=== PATIENT | female | born 1945 | race Caucasian/White ===

== ENCOUNTER 2016-12-14 22:07 | Inpatient (IN) | payer MEDICARE, BC, OTHER ==
[~2016-12-14] VITALS: Ht 162.6 cm; Wt 66.0 kg
[~2016-12-14 22:07] MED LIST: ALDACTONE50 MG PO; ARICEPT10 MG PO; CALCIUM 600MG+D1 TAB PO; CLARITIN 1010 MG/TAB PO; CRESTOR20 MG PO; CYANOCOBAL1000 MCG/1 IJ; GLUCOPHAGE1000 MG PO; LANTUS100 U/ML SC; LASIX 80MG TABL80 MG PO; LUMIGAN 2.5 ML2.5 M1 OU; NAMENDA 10MG TA10 MG PO; NEURONTIN600 MG/TAB PO; NORCO 325 MG-7.1 TAB PO; PRILOSEC10 MG PO; REGLAN 10MG10 MG/TAB PO; RELAFEN 50500 MG/TAB PO; SYNTHROID0.125 MG/T PO; TOFRANIL 25MG T25 MG PO; TOVIAZ8 MG PO; VICTOZA6 MG/ML SQ; VITAMIN D32000 IU PO; ZAROXOLYN5 MG PO
[2016-12-14 23:41] LABS: BASO % 0.4 % (0.0-2.0); EOS # 0.4 (0.0-0.7); EOS % 4.2 % (0-4.0); GRAN # 6.4 (1.4-6.5); LYMPH # 1.5 (1.2-3.4); LYMPH % 16.1 % (20.0-51.0); MEAN CELL VOLUME 93 fl (80.0-100.0); MEAN CORPUSCULAR HEMOGLOBIN 31 pg (27.0-31.0); MEAN CORPUSCULAR HGB CONC 33 g/dl (33.0-37.0); MEAN PLATELET VOLUME 10.8 fl (7.4-10.4); MONO # 0.7 (0.1-0.6); PLATELET COUNT 163 K/mm3 (130-400); RED BLOOD COUNT 3.88 M/mm3 (4.10-5.30); REDCELL DISTRIBUTION WIDTH-CV 13.9 % (11.5-14.5)
[2016-12-14 23:57] LABS: HEMATOCRIT 36.1 % (37.0-47.0)
[2016-12-15 00:02] LABS: ADJUSTED CALCIUM 9.9 mg/dL (8.4-10.2); ALANINE AMINOTRANSFERASE 63 U/L (9-52); ALBUMIN 3.6 gm/dL (3.5-5.0); ALKALINE PHOSPHATASE 130 U/L (50-136); ANION GAP 10 mmol/L (7-16); BILIRUBIN,TOTAL 0.8 mg/dL (0.0-1.0); BLOOD UREA NITROGEN 22 mg/dL (7-17); CALCIUM 9.6 mg/dL (8.4-10.2); CARBON DIOXIDE 23 mmol/L (22-30); CHLORIDE 105 mmol/L (98-107); CREATININE, serum 1.34 mg/dL (0.52-1.25); GLUCOSE 108 mg/dL (74-106); POTASSIUM 4.4 mmol/L (3.4-5.0); SODIUM 138 mmol/L (137-145); TOTAL PROTEIN 6.5 gm/dL (6.4-8.2)
[2016-12-15 00:03] LABS: C-REACTIVE PROTEIN < 0.5 mg/dL (0.0-0.9)
[2016-12-15] MEDS ORDERED: LEVAQUIN 5500 MG/TA1 PO (01:30)
[2016-12-15] MEDS ORDERED: PERCOCET 325 MG1 TA2 PO (01:31)
[2016-12-15] MEDS ORDERED: ATARAX 25MG25 MG/TAB PO (01:31)
[2016-12-15] MEDS ORDERED: MYRBETR50MG PO (01:31)
[2016-12-15] MEDS ORDERED: NAMZARIC1 ECC PO (01:32)
[2016-12-15 02:33] VITALS: BP 147/62; PULSE 78; TEMP 98
[2016-12-15 03:08] LABS: PH 7 (5-8); SQUAMOUS EPITHELIAL None Seen /hpf; URINE APPEARANCE Clear; URINE BACTERIA None Seen /hpf; URINE BILIRUBIN Negative (NEGATIVE); URINE BLOOD Negative (NEGATIVE); URINE COLOR Straw; URINE GLUCOSE Negative (NEGATIVE); URINE KETONE Negative (NEGATIVE); URINE RBC None Seen /hpf; URINE UROBILINOGEN Negative (NEGATIVE); URINE WBC 0-2 /hpf
[2016-12-15 08:25] VITALS: BP 120/46; PULSE 74; TEMP 98.7
[2016-12-15 09:15] LABS: CREATININE, serum 1.21 mg/dL (0.52-1.25); POTASSIUM 4.2 mmol/L (3.4-5.0)
[2016-12-15 12:06] VITALS: BP 133/47; PULSE 86; TEMP 98
[2016-12-15 16:21] VITALS: BP 149/60; PULSE 93; TEMP 98.3
[2016-12-15 20:32] VITALS: BP 143/56; PULSE 93; TEMP 98.4
[2016-12-16] VITALS (12 sets, daily range): BP systolic 120–147; BP diastolic 45–73; PULSE 80–102; TEMP 98–99
[2016-12-17] VITALS (10 sets, daily range): BP systolic 145–157; BP diastolic 49–65; PULSE 82–102; TEMP 97.8–99.4
[2016-12-18] VITALS (7 sets, daily range): BP systolic 119–154; BP diastolic 52–84; PULSE 84–98; TEMP 98–99.1
[2016-12-19] VITALS (8 sets, daily range): BP systolic 124–146; BP diastolic 51–85; PULSE 81–103; TEMP 98.2–99.3
[2016-12-20 03:49] VITALS: BP 135/55; PULSE 99; TEMP 98.6
[2016-12-20 07:40] VITALS: BP 131/49; PULSE 85; TEMP 98.9
[2016-12-20 12:05] VITALS: BP 157/63; PULSE 91
[2016-12-20 12:40] VITALS: BP 157/73; PULSE 91
[2016-12-20 15:29] VITALS: BP 146/51; PULSE 94; TEMP 98.3
[2016-12-20 19:37] VITALS: BP 139/55; PULSE 78; TEMP 98.1
[2016-12-21 00:08] VITALS: BP 128/48; PULSE 93; TEMP 97.8
[2016-12-21 05:08] VITALS: BP 129/50; PULSE 78; TEMP 98.3
[2016-12-21 08:11] VITALS: BP 132/45; PULSE 91; TEMP 98.3
[2016-12-21 11:25] VITALS: BP 136/54; PULSE 86; TEMP 98.2
[2016-12-21 16:55] VITALS: BP 132/48; PULSE 69; TEMP 98
[2016-12-21 20:15] VITALS: BP 122/45; PULSE 84; TEMP 97.8
[2016-12-22 00:32] VITALS: BP 141/59; PULSE 104; TEMP 99.9
[2016-12-22 04:12] VITALS: BP 135/57; PULSE 89; TEMP 99.1
[2016-12-22 08:11] VITALS: BP 130/53; PULSE 84; TEMP 98.8
[2016-12-22] MEDS ORDERED: ARICEPT10 MG PO (08:30)
[2016-12-22] MEDS ORDERED: FENTANYL 100MCG TD (08:32)
[2016-12-22] MEDS ORDERED: LYRICA 75MG CAP75 MG PO (08:33)
[2016-12-22] MEDS ORDERED: MIRALAX PA17 GM/Dose PO (08:34)
[2016-12-22] MEDS ORDERED: DULCOLAX S10 MG/SUPP RC (08:34)
[2016-12-22] MEDS ORDERED: SENOKOT S 50 MG1 TAB PO (08:37)
[2016-12-22] MEDS ORDERED: LIDODERM 5% PATC1 EA TP (08:38)
[2016-12-22] MEDS ORDERED: LEVAQUIN 5500 MG/TA1 PO (09:46)
[2016-12-22] MEDS ORDERED: DILAUDID 2MG TAB2 MG PO (11:38)
[2016-12-22 12:10] VITALS: BP 136/49; PULSE 85; TEMP 97.4
[2016-12-22 14:19] VITALS: BP 136/49; PULSE 85; TEMP 97.4
[2016-12-22 15:49] VITALS: BP 145/55; PULSE 85; TEMP 98.6
[2016-12-23] MEDS ORDERED: DULCOLAX STOOL100 MG PO (20:44)
[2016-12-23] MEDS ORDERED: LEVSIN 0.10.125 MG/T PO (20:48)
[2016-12-23] MEDS ORDERED: SYNTHROID0.05 MG/TA PO (20:50)
[2016-12-23] MEDS ORDERED: ROXICODONE 55 MG/TAB PO (20:56)
[2016-12-23] MEDS ORDERED: NORCO 325 MG-7.1 TAB PO (20:57)
== END 2016-12-22 17:24 | DRG 28 ==
LOC: COL.ER 22:07 → MEDICAL 12-15 00:05
PROVIDERS: Anesthesiology Pain Medicine; Emergency Medicine; Nurse Practitioner Family
PROC: 00PU3MZ Removal of Neurostimulator Lead from Spinal Canal, Percutaneous Approach (ICD-10-PCS; 2016-12-21)
PROC: 0JPT0MZ Removal of Stimulator Generator from Trunk Subcutaneous Tissue and Fascia, Open Approach (ICD-10-PCS; principal; 2016-12-21 14:30)
DX: T85.840A Pain due to nervous system prosthetic devices, implants and grafts, initial encounter (principal); E43 Unspecified severe protein-calorie malnutrition; N17.9 Acute kidney failure, unspecified; Z66 Do not resuscitate; M51.16 Intervertebral disc disorders with radiculopathy, lumbar region; E11.9 Type 2 diabetes mellitus without complications; Z85.3 Personal history of malignant neoplasm of breast; G89.29 Other chronic pain; Z87.891 Personal history of nicotine dependence; R33.9 Retention of urine, unspecified; G30.0 Alzheimer's disease with early onset; F02.80 Dementia in other diseases classified elsewhere, unspecified severity, without behavioral disturbance, psychotic disturbance, mood disturbance, and anxiety
CPT/HCPCS: 99231-AI; 99232-AI; 99233-AI; 99239; G0378; G8978-GP; G8979-GP; G8987-GO; G8988-GO; J0690; J1100; J1170; J1885; J2250; J2405; J2704; J3010; J7030; Q9967

== ENCOUNTER 2016-12-22 11:44 | Inpatient (IN) | payer MEDICARE, BC, OTHER ==
[~2016-12-22] VITALS: Ht 162.6 cm; Wt 65.2 kg
[~2016-12-22 11:44] MED LIST changes: +ATARAX 25MG25 MG/TAB PO; +DILAUDID 2MG TAB2 MG PO; +DULCOLAX S10 MG/SUPP RC; +FENTANYL 100MCG TD; +LEVAQUIN 5500 MG/TA1 PO; +LIDODERM 5% PATC1 EA TP; +LYRICA 75MG CAP75 MG PO; +MIRALAX PA17 GM/Dose PO; +MYRBETR50MG PO; +NAMZARIC1 ECC PO; +PERCOCET 325 MG1 TA2 PO; +SENOKOT S 50 MG1 TAB PO
[2016-12-22 17:36] VITALS: BP 126/47; PULSE 76; TEMP 98.9
[2016-12-23 04:48] VITALS: BP 118/40; PULSE 75; TEMP 97.3
[2016-12-23 18:01] VITALS: BP 149/46; PULSE 83; TEMP 98.2
[2016-12-23] MEDS ORDERED: DULCOLAX STOOL100 MG PO (20:44)
[2016-12-23] MEDS ORDERED: LEVSIN 0.10.125 MG/T PO (20:48)
[2016-12-23] MEDS ORDERED: SYNTHROID0.05 MG/TA PO (20:50)
[2016-12-23] MEDS ORDERED: ROXICODONE 55 MG/TAB PO (20:56)
[2016-12-23] MEDS ORDERED: NORCO 325 MG-7.1 TAB PO (20:57)
[2016-12-24 04:32] VITALS: BP 112/51; PULSE 81; TEMP 98.1
[2016-12-24 18:31] VITALS: BP 138/47; PULSE 98; TEMP 99.1
[2016-12-25 04:13] VITALS: BP 131/53; PULSE 86; TEMP 98
[2016-12-25 18:02] VITALS: BP 150/58; PULSE 94; TEMP 98.8
[2016-12-26 04:43] VITALS: BP 129/49; PULSE 84; TEMP 97.9
[2016-12-26 16:33] VITALS: BP 153/61; PULSE 88; TEMP 98.4
[2016-12-27 02:40] VITALS: BP 134/49; PULSE 97; TEMP 97.6
[2016-12-27 05:57] VITALS: BP 121/45; PULSE 87; TEMP 97.9
[2016-12-27 11:13] VITALS: BP 146/55; PULSE 92; TEMP 98.1
[2016-12-27 17:07] VITALS: BP 113/46; PULSE 86; TEMP 98.7
[2016-12-28 04:52] VITALS: BP 130/48; PULSE 80; TEMP 97.7
[2016-12-28 13:37] LABS: ADD PATHOLOGY DIFF REVIEW NO
[2016-12-28 13:43] LABS: MEAN CELL VOLUME 91 fl (80.0-100.0); MEAN CORPUSCULAR HGB CONC 33 g/dl (33.0-37.0); MEAN PLATELET VOLUME 10.6 fl (7.4-10.4); PLATELET COUNT 279 K/mm3 (130-400); RED BLOOD COUNT 3.66 M/mm3 (4.10-5.30); REDCELL DISTRIBUTION WIDTH-CV 13.2 % (11.5-14.5); WHITE BLOOD COUNT 8.4 K/mm3 (4.8-10.8)
[2016-12-28 13:44] LABS: HEMATOCRIT 33.3 % (37.0-47.0); HEMOGLOBIN 11.1 g/dl (12.5-16.0); MEAN CORPUSCULAR HEMOGLOBIN 30 pg (27.0-31.0)
[2016-12-28 13:55] LABS: CALCIUM 9.8 mg/dL (8.4-10.2); CREATININE, serum 1.1 mg/dL (0.52-1.25); MAGNESIUM 2.1 mg/dL (1.6-2.3); POTASSIUM 3.5 mmol/L (3.4-5.0)
[2016-12-28 15:35] LABS: BAND 6 % (0-10); EOSINOPHIL 4 % (0-4); NEUTROPHILS 71 % (42.0-75.2); PLATELET ESTIMATE NORMAL (NORMAL); TOTAL CELLS COUNTED 100
[2016-12-28 16:16] VITALS: BP 134/56; PULSE 76; TEMP 98.4
[2016-12-28 19:28] LABS: PH 8 (5-8); SQUAMOUS EPITHELIAL 0-2 /hpf; URINE APPEARANCE Clear; URINE BACTERIA None Seen /hpf; URINE BILIRUBIN Negative (NEGATIVE); URINE BLOOD Negative (NEGATIVE); URINE COLOR Straw; URINE GLUCOSE Negative (NEGATIVE); URINE KETONE Negative (NEGATIVE); URINE RBC 0-2 /hpf; URINE UROBILINOGEN Negative (NEGATIVE); URINE WBC 0-2 /hpf
[2016-12-29 06:00] VITALS: BP 121/67; PULSE 92; TEMP 98.6
[2016-12-29 16:11] VITALS: BP 128/56; PULSE 76; TEMP 99.1
[2016-12-30 05:02] VITALS: BP 149/77; PULSE 95; TEMP 97.4
[2016-12-30 13:14] LABS: ARTERIAL BLD GAS O2 SATURATION 94.7 % (92-100); ARTERIAL BLD GAS TCO2 CT 25.6; ARTERIAL BLOOD GAS BASE EXCESS 0.6 (-2-2); ARTERIAL BLOOD GAS HCO3 24.5 meq/L (22-26); ARTERIAL BLOOD GAS PHT 7.45 C (7.35-7.45); ARTERIAL BLOOD GAS PO2 75.1 mmHg (80-100); ARTERIAL BLOOD GAS PO2T 75.1 (80-100); ARTERIAL BLOOD GAS pH 7.45 (7.35-7.45); OXYHEMOGLOBIN 93.8 %
[2016-12-30 13:15] LABS: ALLEN TEST YES; ALLENS TEST RESULT PASS; ATS? YES
[2016-12-30 15:05] LABS: BASO # 0.1 (0.0-0.2); BASO % 0.8 % (0.0-2.0); EOS # 0.5 (0.0-0.7); EOS % 8.1 % (0-4.0); GRAN # 3.6 (1.4-6.5); GRAN % 60.2 % (42.2-75.2); LYMPH # 1.5 (1.2-3.4); LYMPH % 24.3 % (20.0-51.0); MEAN CELL VOLUME 93 fl (80.0-100.0); MEAN CORPUSCULAR HGB CONC 33 g/dl (33.0-37.0); MEAN PLATELET VOLUME 9.9 fl (7.4-10.4); MONO # 0.4 (0.1-0.6); MONO % 6.3 % (1.7-9.3); PLATELET COUNT 233 K/mm3 (130-400); RED BLOOD COUNT 3.29 M/mm3 (4.10-5.30); REDCELL DISTRIBUTION WIDTH-CV 13.4 % (11.5-14.5)
[2016-12-30 15:08] LABS: HEMATOCRIT 30.5 % (37.0-47.0); HEMOGLOBIN 9.9 g/dl (12.5-16.0); MEAN CORPUSCULAR HEMOGLOBIN 30 pg (27.0-31.0)
[2016-12-30 15:13] LABS: CALCIUM 9.2 mg/dL (8.4-10.2); CREATININE, serum 1.15 mg/dL (0.52-1.25); MAGNESIUM 1.9 mg/dL (1.6-2.3); POTASSIUM 3.8 mmol/L (3.4-5.0)
[2016-12-30 18:02] VITALS: BP 148/58; PULSE 81; TEMP 97.4
[2016-12-31 06:16] VITALS: BP 108/44; PULSE 76; TEMP 97.4
[2016-12-31 16:03] VITALS: BP 136/51; PULSE 80; TEMP 98.4
[2017-01-01 05:58] VITALS: BP 130/61; PULSE 77; TEMP 98.5
[2017-01-01 16:17] VITALS: BP 143/48; PULSE 70; TEMP 98
[2017-01-02 04:23] VITALS: BP 130/56; PULSE 76; TEMP 97.9
[2017-01-02 16:13] VITALS: BP 133/48; PULSE 73; TEMP 98.2
[2017-01-03 06:24] VITALS: BP 122/52; PULSE 88; TEMP 97.6
[2017-01-03 17:55] VITALS: BP 140/46; PULSE 82; TEMP 97
[2017-01-04 04:16] VITALS: BP 111/45; PULSE 81; TEMP 98.2
[2017-01-04 19:20] VITALS: BP 135/52; PULSE 79; TEMP 98.3
[2017-01-05 05:20] VITALS: BP 113/47; PULSE 82; TEMP 99
[2017-01-05] MEDS ORDERED: TYLENOL 325MG325 MG PO (12:01)
[2017-01-05] MEDS ORDERED: LIDODERM 5% PATC1 EA TP (12:05)
[2017-01-05] MEDS ORDERED: FENTANYL 100MCG TD (12:09)
== END 2017-01-05 14:45 | disposition home or self-care (01) | DRG 947 ==
PROVIDERS: Internal Medicine
DX: R53.81 Other malaise (principal); E43 Unspecified severe protein-calorie malnutrition; Z66 Do not resuscitate; E11.21 Type 2 diabetes mellitus with diabetic nephropathy; M51.16 Intervertebral disc disorders with radiculopathy, lumbar region; G89.29 Other chronic pain; N18.9 Chronic kidney disease, unspecified; R33.9 Retention of urine, unspecified
CPT/HCPCS: 99222-AI; 99232-AI; 99233-AI; 99239; J1650

== ENCOUNTER → 2017-02-17 | Outpatient (CLI) | payer MEDICARE, BC, OTHER ==
[~2017-02-17] MED LIST changes: +DULCOLAX STOOL100 MG PO; +LEVSIN 0.10.125 MG/T PO; +ROXICODONE 55 MG/TAB PO; +SYNTHROID0.05 MG/TA PO; +TYLENOL 325MG325 MG PO
[2017-02-17 15:29] LABS: PH 6 (5-8); SQUAMOUS EPITHELIAL 0-2 /hpf; URINE APPEARANCE Clear; URINE BACTERIA None Seen /hpf; URINE BILIRUBIN Negative (NEGATIVE); URINE BLOOD Negative (NEGATIVE); URINE COLOR Yellow; URINE GLUCOSE Negative (NEGATIVE); URINE KETONE Negative (NEGATIVE); URINE RBC 0-2 /hpf; URINE UROBILINOGEN Negative (NEGATIVE); URINE WBC 0-2 /hpf
[2017-02-17 15:38] LABS: ADJUSTED CALCIUM 9.5 mg/dL (8.4-10.2); ALBUMIN 3.8 gm/dL (3.5-5.0); BILIRUBIN,TOTAL 0.6 mg/dL (0.0-1.0); CALCIUM 9.3 mg/dL (8.4-10.2); CREATININE, serum 1.04 mg/dL (0.52-1.25); POTASSIUM 3.9 mmol/L (3.4-5.0); TOTAL PROTEIN 6.6 gm/dL (6.4-8.2)
[2017-02-17 16:08] LABS: THYROID STIMULATING HORMONE 3.79 uIU/mL (0.465-4.680)
[2017-02-17 22:45] LABS: ALBUMIN/CREATININE RATIO URINE 22.4 mg/g (0.0-29.0)
== END ==
LOC: COL.LAB 14:23
PROVIDERS: Internal Medicine
DX: E78.2 Mixed hyperlipidemia (principal); E11.9 Type 2 diabetes mellitus without complications; E03.2 Hypothyroidism due to medicaments and other exogenous substances; K90.89 Other intestinal malabsorption; N30.10 Interstitial cystitis (chronic) without hematuria

== ENCOUNTER → 2017-03-01 | Outpatient (CLI) | payer MEDICARE, BC, OTHER | LOC: MHCPAIN 09:33 | DX: G89.29 Other chronic pain (principal); M47.817 Spondylosis without myelopathy or radiculopathy, lumbosacral region; M53.3 Sacrococcygeal disorders, not elsewhere classified; M41.9 Scoliosis, unspecified | CPT/HCPCS: G0463 ==

== ENCOUNTER → 2017-03-31 | Outpatient (CLI) | payer MEDICARE, BC, OTHER | LOC: MHCPAIN 10:36 | DX: G89.29 Other chronic pain (principal); M47.817 Spondylosis without myelopathy or radiculopathy, lumbosacral region; M54.16 Radiculopathy, lumbar region; M41.9 Scoliosis, unspecified; Z87.891 Personal history of nicotine dependence | CPT/HCPCS: G0463 ==

== ENCOUNTER → 2017-04-19 | Outpatient (CLI) | payer MEDICARE, BC, OTHER | LOC: MC.RAD 13:00 | DX: Z12.31 Encounter for screening mammogram for malignant neoplasm of breast (principal); C50.919 Malignant neoplasm of unspecified site of unspecified female breast ==

== ENCOUNTER → 2017-05-05 | Outpatient (CLI) | payer MEDICARE, BC, OTHER | LOC: MHCPAIN 10:31 | DX: G89.29 Other chronic pain (principal); M47.817 Spondylosis without myelopathy or radiculopathy, lumbosacral region; M79.2 Neuralgia and neuritis, unspecified; M41.9 Scoliosis, unspecified; Z87.891 Personal history of nicotine dependence | CPT/HCPCS: G0463 ==

== ENCOUNTER → 2017-06-14 | Outpatient (CLI) | payer MEDICARE, BC, OTHER | LOC: MHCPAIN 10:28 | DX: G89.29 Other chronic pain (principal); M47.817 Spondylosis without myelopathy or radiculopathy, lumbosacral region; M79.2 Neuralgia and neuritis, unspecified; M41.9 Scoliosis, unspecified | CPT/HCPCS: G0463 ==

== ENCOUNTER → 2017-07-14 | Outpatient (CLI) | payer MEDICARE, BC, OTHER | LOC: MHCPAIN 12:50 | DX: G89.29 Other chronic pain (principal); M47.27 Other spondylosis with radiculopathy, lumbosacral region; M79.2 Neuralgia and neuritis, unspecified; Z79.82 Long term (current) use of aspirin | CPT/HCPCS: G0463 ==

== ENCOUNTER → 2017-08-16 | Outpatient (CLI) | payer MEDICARE, BC, OTHER | LOC: MHCPAIN 10:41 | DX: G89.29 Other chronic pain (principal); M47.817 Spondylosis without myelopathy or radiculopathy, lumbosacral region; M79.2 Neuralgia and neuritis, unspecified; Z87.891 Personal history of nicotine dependence | CPT/HCPCS: G0463 ==

== ENCOUNTER → 2017-10-18 | Outpatient (CLI) | payer MEDICARE, BC, OTHER | LOC: MHCPAIN 10:49 | DX: G89.29 Other chronic pain (principal); M47.817 Spondylosis without myelopathy or radiculopathy, lumbosacral region; M53.3 Sacrococcygeal disorders, not elsewhere classified; F17.200 Nicotine dependence, unspecified, uncomplicated | CPT/HCPCS: G0463 ==

== ENCOUNTER 2017-12-01 13:44 | Inpatient (IN) | payer MEDICARE, BC, OTHER ==
[~2017-12-01] VITALS: Ht 162.6 cm; Wt 75.6 kg
[2018-02-01] VITALS (10 sets, daily range): BP systolic 123–175; BP diastolic 44–88; PULSE 55–62; TEMP 98–983.2
[2018-02-02 01:22] VITALS: BP 122/56; PULSE 64; TEMP 98.1
[2018-02-02 03:57] VITALS: BP 130/59; PULSE 76; TEMP 98.4
[2018-02-02 06:59] LABS: HEMOGLOBIN 10.3 g/dl (12.5-16.0)
[2018-02-02 07:19] LABS: HEMATOCRIT 30.9 % (37.0-47.0)
[2018-02-02 07:37] VITALS: BP 127/89; PULSE 73; TEMP 97.9
[2018-02-02 12:34] VITALS: BP 143/50; PULSE 68; TEMP 97.5
[2018-02-02 16:13] VITALS: BP 143/42; PULSE 78; TEMP 98
[2018-02-02 20:33] VITALS: BP 165/57; PULSE 98; TEMP 98.4
[2018-02-03 00:15] VITALS: BP 140/60; PULSE 90; TEMP 98
[2018-02-03 04:45] VITALS: BP 149/65; PULSE 100; TEMP 98.6
[2018-02-03 09:02] VITALS: BP 151/61; PULSE 96; TEMP 97.8
[2018-02-03 12:39] VITALS: BP 92/54; PULSE 91; TEMP 98
== END 2018-02-03 14:40 | disposition home or self-care (01) | DRG 470 ==
LOC: JCC 02-01 06:49
PROVIDERS: Orthopaedic Surgery
PROC: 0SRC0J9 Replacement of Right Knee Joint with Synthetic Substitute, Cemented, Open Approach (ICD-10-PCS; principal; 2018-02-01 09:50)
DX: M17.11 Unilateral primary osteoarthritis, right knee (principal); N32.81 Overactive bladder; M48.00 Spinal stenosis, site unspecified; J30.9 Allergic rhinitis, unspecified; E05.90 Thyrotoxicosis, unspecified without thyrotoxic crisis or storm; E11.9 Type 2 diabetes mellitus without complications; F03.90 Unspecified dementia, unspecified severity, without behavioral disturbance, psychotic disturbance, mood disturbance, and anxiety; R29.6 Repeated falls; H40.9 Unspecified glaucoma; K44.9 Diaphragmatic hernia without obstruction or gangrene; F32.9 Major depressive disorder, single episode, unspecified; I87.2 Venous insufficiency (chronic) (peripheral); E55.9 Vitamin D deficiency, unspecified; M81.0 Age-related osteoporosis without current pathological fracture
CPT/HCPCS: A4314; A9284; C1713; C1776; J0690; J2250; J2270; J2704; J3010; J3260; J7120

== ENCOUNTER → 2017-12-15 | Outpatient (CLI) | payer MEDICARE, BC, OTHER | LOC: MHCPAIN 10:47 | DX: G89.29 Other chronic pain (principal); M47.817 Spondylosis without myelopathy or radiculopathy, lumbosacral region; M53.3 Sacrococcygeal disorders, not elsewhere classified; M41.9 Scoliosis, unspecified | CPT/HCPCS: G0463 ==

== ENCOUNTER → 2017-12-17 | Outpatient (REF) ==
[2017-12-17 18:36] LABS: THYROID STIMULATING HORMONE 2.59 uIU/mL (0.465-4.680)
== END ==
LOC: ZLAB.WCH 17:54
PROVIDERS: Internal Medicine
DX: Z01.89 Encounter for other specified special examinations (principal)

== ENCOUNTER → 2018-01-11 | Outpatient (REF) | LOC: ZLAB.WCH 15:02 | DX: Z01.89 Encounter for other specified special examinations (principal) ==

== ENCOUNTER → 2018-01-17 | Outpatient (CLI) | payer MEDICARE, BC, OTHER ==
[2018-01-17 10:06] LABS: HIV 1/2 Antibodies Non-Reactive; HIV-1p24 Antigen Non-Reactive
== END ==
LOC: COL.LAB 08:58
PROVIDERS: Orthopaedic Surgery
DX: Z01.812 Encounter for preprocedural laboratory examination (principal); M17.11 Unilateral primary osteoarthritis, right knee

== ENCOUNTER → 2018-02-21 | Outpatient (CLI) | payer MEDICARE, BC, OTHER | LOC: MHCPAIN 12:47 | DX: G89.29 Other chronic pain (principal); M47.817 Spondylosis without myelopathy or radiculopathy, lumbosacral region; M53.3 Sacrococcygeal disorders, not elsewhere classified; M41.9 Scoliosis, unspecified | CPT/HCPCS: G0463 ==

== ENCOUNTER → 2018-02-21 | Outpatient (CLI) | payer MEDICARE, BC, OTHER | LOC: MHCPAIN 12:59 | DX: G89.29 Other chronic pain (principal); M47.817 Spondylosis without myelopathy or radiculopathy, lumbosacral region; M53.3 Sacrococcygeal disorders, not elsewhere classified; M41.9 Scoliosis, unspecified | CPT/HCPCS: G0463 ==

== ENCOUNTER → 2018-03-28 | Outpatient (CLI) | payer MEDICARE, BC, OTHER ==
[~2018-03-28] MED LIST changes: +COLACE 100100 MG/CAP PO; +FLONASEALLERGY NS; +LIORESAL 1010 MG/TAB PO; +MELATONIN5 M1 SL; +MULTIVITAMIN FO1 CAP PO; +VITAMIN D 400400 IU PO
== END ==
LOC: MHCPAIN 11:19
DX: G89.29 Other chronic pain (principal); M47.817 Spondylosis without myelopathy or radiculopathy, lumbosacral region; M53.3 Sacrococcygeal disorders, not elsewhere classified; M79.2 Neuralgia and neuritis, unspecified; M48.061 Spinal stenosis, lumbar region without neurogenic claudication; M41.9 Scoliosis, unspecified
CPT/HCPCS: G0463

== ENCOUNTER 2018-03-30 09:49 | Inpatient (IN) | payer MEDICARE, BC, OTHER ==
[~2018-03-30] VITALS: Ht 165.1 cm; Wt 77.9 kg
[2018-03-30] VITALS (218 sets, daily range): BP systolic 122–148; BP diastolic 64–68; PULSE 73–81; TEMP 97–98.4; O2SAT 52–100
[~2018-03-30 09:49] MED LIST changes: -COLACE 100100 MG/CAP PO; -FLONASEALLERGY NS; -LIORESAL 1010 MG/TAB PO; -MELATONIN5 M1 SL; -MULTIVITAMIN FO1 CAP PO; -VITAMIN D 400400 IU PO
[2018-03-30 10:29] LABS: COLLECTION METHOD CATHETER
[2018-03-30 10:44] LABS: PH 8 (5-8); SQUAMOUS EPITHELIAL None Seen /hpf; URINE APPEARANCE Clear; URINE BACTERIA None Seen /hpf; URINE BILIRUBIN Negative (NEGATIVE); URINE BLOOD Negative (NEGATIVE); URINE COLOR Straw; URINE GLUCOSE Negative (NEGATIVE); URINE KETONE Negative (NEGATIVE); URINE LEUKOCYTE ESTERASE Negative (NEGATIVE); URINE NITRATE Negative (NEGATIVE); URINE PROTEIN(semi-quant) Negative (NEGATIVE); URINE RBC 0-2 /hpf; URINE UROBILINOGEN Negative (NEGATIVE)
[2018-03-30] MEDS ORDERED: MYRBETR50MG PO (10:46)
[2018-03-30] MEDS ORDERED: NEURONTIN600 MG/TAB PO (10:47)
[2018-03-30] MEDS ORDERED: MULTIVITAMIN FO1 CAP PO (10:48)
[2018-03-30] MEDS ORDERED: VITAMIN D 400400 IU PO (10:49)
[2018-03-30] MEDS ORDERED: FLONASEALLERGY NS (10:50)
[2018-03-30] MEDS ORDERED: MELATONIN5 M1 SL (10:50)
[2018-03-30] MEDS ORDERED: PERCOCET 325 MG1 TA2 PO (10:50)
[2018-03-30] MEDS ORDERED: COLACE 100100 MG/CAP PO (10:51)
[2018-03-30] MEDS ORDERED: LIORESAL 1010 MG/TAB PO (10:51)
[2018-03-30 11:47] LABS: ALANINE AMINOTRANSFERASE 69 U/L (9-52); ALBUMIN 3.7 gm/dL (3.5-5.0); ALKALINE PHOSPHATASE 203 U/L (50-136); ANION GAP 9 mmol/L (7-16); AST,SGOT 56 U/L (15-37); BILIRUBIN,TOTAL 0.4 mg/dL (0.0-1.0); BLOOD UREA NITROGEN 24 mg/dL (7-17); CALCIUM 9.2 mg/dL (8.4-10.2); CARBON DIOXIDE 27 mmol/L (22-30); CHLORIDE 103 mmol/L (98-107); CREATININE, serum 1.38 mg/dL (0.52-1.25); GLUCOSE 106 mg/dL (74-106); POTASSIUM 3.7 mmol/L (3.4-5.0); SODIUM 140 mmol/L (137-145); TOTAL PROTEIN 6.8 gm/dL (6.4-8.2)
[2018-03-30 12:04] LABS: TROPONIN-I < 0.012 ng/mL (0.000-0.034)
[2018-03-30 13:16] LABS: ALCOHOL(ethanol),MEDICAL < 10 mg/dL
[2018-03-30 13:24] LABS: TRICYCLIC ANTIDEPRESS URINE NEGATIVE
[2018-03-30 14:53] LABS: BASO % 0.3 % (0.0-2.0); EOS # 0.2 (0.0-0.7); EOS % 2.7 % (0-4.0); GRAN # 4.9 (1.4-6.5); GRAN % 73.3 % (42.2-75.2); HEMOGLOBIN 11.7 g/dl (12.5-16.0); LYMPH # 1.2 (1.2-3.4); LYMPH % 17.9 % (20.0-51.0); MEAN CELL VOLUME 93 fl (80.0-100.0); MEAN CORPUSCULAR HEMOGLOBIN 31 pg (27.0-31.0); MEAN CORPUSCULAR HGB CONC 34 g/dl (33.0-37.0); MEAN PLATELET VOLUME 9.9 fl (7.4-10.4); MONO # 0.4 (0.1-0.6); MONO % 5.3 % (1.7-9.3); PLATELET COUNT 188 K/mm3 (130-400); RED BLOOD COUNT 3.74 M/mm3 (4.10-5.30); REDCELL DISTRIBUTION WIDTH-CV 14.4 % (11.5-14.5)
[2018-03-30 14:55] LABS: HEMATOCRIT 34.9 % (37.0-47.0)
[2018-03-31] VITALS (876 sets, daily range): BP systolic 115–157; BP diastolic 58–68; PULSE 77–96; TEMP 97.6–99.4; O2SAT 64–100
[2018-03-31 05:55] LABS: BASO % 0.4 % (0.0-2.0); EOS # 0.2 (0.0-0.7); EOS % 2.8 % (0-4.0); GRAN % 70.1 % (42.2-75.2); HEMOGLOBIN 10.4 g/dl (12.5-16.0); LYMPH # 1.5 (1.2-3.4); LYMPH % 17.9 % (20.0-51.0); MEAN CORPUSCULAR HEMOGLOBIN 31 pg (27.0-31.0); MEAN CORPUSCULAR HGB CONC 32 g/dl (33.0-37.0); MEAN PLATELET VOLUME 10.8 fl (7.4-10.4); MONO # 0.7 (0.1-0.6); MONO % 8.4 % (1.7-9.3); PLATELET COUNT 184 K/mm3 (130-400); RED BLOOD COUNT 3.34 M/mm3 (4.10-5.30); REDCELL DISTRIBUTION WIDTH-CV 14.6 % (11.5-14.5)
[2018-03-31 05:58] LABS: HEMATOCRIT 32.6 % (37.0-47.0); MEAN CELL VOLUME 98 fl (80.0-100.0)
[2018-03-31 06:06] LABS: CALCIUM 8.8 mg/dL (8.4-10.2); CREATININE, serum 1.37 mg/dL (0.52-1.25); POTASSIUM 3.6 mmol/L (3.4-5.0)
[2018-04-01] VITALS (528 sets, daily range): BP systolic 129–168; BP diastolic 68–88; PULSE 73–86; TEMP 97–97.8; O2SAT 70–100
[2018-04-01 14:40] LABS: BASO % 0.5 % (0.0-2.0); EOS # 0.1 (0.0-0.7); EOS % 1.6 % (0-4.0); GRAN # 5.1 (1.4-6.5); GRAN % 68.2 % (42.2-75.2); HEMATOCRIT 36.2 % (37.0-47.0); HEMOGLOBIN 12.2 g/dl (12.5-16.0); LYMPH # 1.7 (1.2-3.4); LYMPH % 22.6 % (20.0-51.0); MEAN CELL VOLUME 93 fl (80.0-100.0); MEAN CORPUSCULAR HEMOGLOBIN 31 pg (27.0-31.0); MEAN CORPUSCULAR HGB CONC 34 g/dl (33.0-37.0); MEAN PLATELET VOLUME 10.3 fl (7.4-10.4); MONO # 0.5 (0.1-0.6); MONO % 6.7 % (1.7-9.3); PLATELET COUNT 189 K/mm3 (130-400); REDCELL DISTRIBUTION WIDTH-CV 13.9 % (11.5-14.5)
[2018-04-01 14:50] LABS: ALBUMIN 3.9 gm/dL (3.5-5.0); BILIRUBIN,TOTAL 0.4 mg/dL (0.0-1.0); CALCIUM 9.8 mg/dL (8.4-10.2); CREATININE, serum 1.14 mg/dL (0.52-1.25); POTASSIUM 3.7 mmol/L (3.4-5.0); TOTAL PROTEIN 7.3 gm/dL (6.4-8.2)
== END 2018-04-01 15:50 | disposition home health service (06) | DRG 92 ==
LOC: COL.ER 09:49 → ICU 12:39
PROVIDERS: Emergency Medicine; Hospitalist; Physician Assistant
DX: G92 Toxic encephalopathy (principal); N17.9 Acute kidney failure, unspecified; T42.8X5A Adverse effect of antiparkinsonism drugs and other central muscle-tone depressants, initial encounter; E11.9 Type 2 diabetes mellitus without complications; Z85.3 Personal history of malignant neoplasm of breast; F03.90 Unspecified dementia, unspecified severity, without behavioral disturbance, psychotic disturbance, mood disturbance, and anxiety; Z87.891 Personal history of nicotine dependence; G89.29 Other chronic pain; M51.16 Intervertebral disc disorders with radiculopathy, lumbar region
CPT/HCPCS: 99223-AI; 99233-AI; 99239; G0463; G8978-GP; G8979-GP; G8987-GO; G8988-GO; J1644; J2310; J2405; J7030

== ENCOUNTER → 2018-04-05 | Outpatient (CLI) | payer MEDICARE, BC, OTHER ==
[~2018-04-05] MED LIST changes: +COLACE 100100 MG/CAP PO; +FLONASEALLERGY NS; +LIORESAL 1010 MG/TAB PO; +MELATONIN5 M1 SL; +MULTIVITAMIN FO1 CAP PO; +VITAMIN D 400400 IU PO
== END ==
LOC: MHCPAIN 13:48
DX: G89.29 Other chronic pain (principal); M47.817 Spondylosis without myelopathy or radiculopathy, lumbosacral region; M53.3 Sacrococcygeal disorders, not elsewhere classified; M47.814 Spondylosis without myelopathy or radiculopathy, thoracic region; M48.061 Spinal stenosis, lumbar region without neurogenic claudication; M41.9 Scoliosis, unspecified
CPT/HCPCS: G0463

== ENCOUNTER → 2018-04-14 | Outpatient (REF) | LOC: ZLAB.WCH 08:49 | DX: Z01.89 Encounter for other specified special examinations (principal) ==

== ENCOUNTER → 2018-04-20 | Outpatient (CLI) | payer MEDICARE, BC, OTHER | LOC: MC.RAD 13:08 | DX: Z12.31 Encounter for screening mammogram for malignant neoplasm of breast (principal); Z90.11 Acquired absence of right breast and nipple; R92.1 Mammographic calcification found on diagnostic imaging of breast; Z85.3 Personal history of malignant neoplasm of breast ==

== ENCOUNTER → 2018-04-26 | Outpatient (CLI) | payer MEDICARE, BC, OTHER | LOC: MC.RAD 13:29 | DX: R92.1 Mammographic calcification found on diagnostic imaging of breast (principal); R92.2 Inconclusive mammogram; Z85.3 Personal history of malignant neoplasm of breast ==

== ENCOUNTER → 2018-06-06 | Outpatient (CLI) | payer MEDICARE, BC, OTHER | LOC: MHCPAIN 09:05 | DX: G89.29 Other chronic pain (principal); M47.817 Spondylosis without myelopathy or radiculopathy, lumbosacral region; M53.3 Sacrococcygeal disorders, not elsewhere classified; M47.814 Spondylosis without myelopathy or radiculopathy, thoracic region; M41.9 Scoliosis, unspecified; M79.2 Neuralgia and neuritis, unspecified | CPT/HCPCS: G0463 ==

== ENCOUNTER 2018-06-15 08:59 | Emergency (ER) | payer MEDICARE, BC, OTHER ==
[~2018-06-15] VITALS: Ht 162.6 cm; Wt 72.7 kg
[2018-06-15 09:04] VITALS: TEMP 97.9
[2018-06-15] MEDS ORDERED: D3-5050000 IU PO (09:29)
[2018-06-15 09:31] LABS: BASO % 0.4 % (0.0-2.0); EOS # 0.4 (0.0-0.7); EOS % 4.5 % (0-4.0); GRAN # 6.4 (1.4-6.5); GRAN % 68.7 % (42.2-75.2); HEMATOCRIT 36.9 % (37.0-47.0); HEMOGLOBIN 12.5 g/dl (12.5-16.0); LYMPH # 1.9 (1.2-3.4); LYMPH % 20.7 % (20.0-51.0); MEAN CELL VOLUME 91 fl (80.0-100.0); MEAN CORPUSCULAR HEMOGLOBIN 31 pg (27.0-31.0); MEAN CORPUSCULAR HGB CONC 34 g/dl (33.0-37.0); MEAN PLATELET VOLUME 10.2 fl (7.4-10.4); MONO # 0.5 (0.1-0.6); MONO % 5.4 % (1.7-9.3); PLATELET COUNT 167 K/mm3 (130-400); RED BLOOD COUNT 4.05 M/mm3 (4.10-5.30); REDCELL DISTRIBUTION WIDTH-CV 13.8 % (11.5-14.5)
[2018-06-15] MEDS ORDERED: VESICARE10 MG PO (09:33)
[2018-06-15] MEDS ORDERED: ATARAX 25MG25 MG/TAB PO (09:33)
[2018-06-15 09:44] LABS: ALBUMIN 3.8 gm/dL (3.5-5.0); BILIRUBIN,TOTAL 0.4 mg/dL (0.0-1.0); C-REACTIVE PROTEIN 0.7 mg/dL (0.0-0.9); CALCIUM 9.8 mg/dL (8.4-10.2); CREATININE, serum 1.3 mg/dL (0.52-1.25)
[2018-06-15 11:08] VITALS: BP 162/74; PULSE 62
== END 2018-06-15 11:07 | disposition home or self-care (01) ==
LOC: COL.ER 08:59
PROVIDERS: Family Medicine
DX: R13.10 Dysphagia, unspecified (principal); M54.2 Cervicalgia; Z85.3 Personal history of malignant neoplasm of breast
CPT/HCPCS: J7040; Q9967

== ENCOUNTER → 2018-06-24 | Outpatient (CLI) | payer MEDICARE, BC, OTHER ==
[~2018-06-24] MED LIST changes: +D3-5050000 IU PO; +VESICARE10 MG PO
[2018-06-24 13:06] LABS: CREATININE, serum 1.24 mg/dL (0.52-1.25); POTASSIUM 4.2 mmol/L (3.4-5.0)
== END ==
LOC: COL.RAD 12:22 → COL.LAB 12:22 → COL.RAD 13:30
PROVIDERS: Internal Medicine
DX: E11.9 Type 2 diabetes mellitus without complications (principal); I51.7 Cardiomegaly; R59.0 Localized enlarged lymph nodes; Z98.890 Other specified postprocedural states; Z90.11 Acquired absence of right breast and nipple
CPT/HCPCS: Q9967

== ENCOUNTER → 2018-07-06 | Outpatient (CLI) | payer MEDICARE, BC, OTHER | LOC: MHCPAIN 10:58 | DX: G89.29 Other chronic pain (principal); M47.817 Spondylosis without myelopathy or radiculopathy, lumbosacral region; M54.16 Radiculopathy, lumbar region; M53.3 Sacrococcygeal disorders, not elsewhere classified; M47.814 Spondylosis without myelopathy or radiculopathy, thoracic region; M41.9 Scoliosis, unspecified | CPT/HCPCS: G0463 ==

== ENCOUNTER → 2018-07-14 | Outpatient (CLI) | payer MEDICARE, BC, OTHER | LOC: MHCPAIN 14:12 | DX: M47.817 Spondylosis without myelopathy or radiculopathy, lumbosacral region (principal); M54.16 Radiculopathy, lumbar region ==

== ENCOUNTER → 2018-07-20 | Outpatient (CLI) | payer MEDICARE, BC, OTHER | LOC: MHCPAIN 08:18 | DX: G89.29 Other chronic pain (principal); M47.817 Spondylosis without myelopathy or radiculopathy, lumbosacral region; M53.3 Sacrococcygeal disorders, not elsewhere classified; M41.9 Scoliosis, unspecified; M79.2 Neuralgia and neuritis, unspecified | CPT/HCPCS: G0463 ==

== ENCOUNTER → 2018-07-26 | Outpatient (CLI) | payer MEDICARE, BC, OTHER | LOC: MHCPAIN 10:03 | DX: G89.29 Other chronic pain (principal); M47.817 Spondylosis without myelopathy or radiculopathy, lumbosacral region; M54.16 Radiculopathy, lumbar region; M53.3 Sacrococcygeal disorders, not elsewhere classified; M79.2 Neuralgia and neuritis, unspecified; M41.9 Scoliosis, unspecified | CPT/HCPCS: G0463 ==

== ENCOUNTER 2018-07-27 10:30 | Outpatient (RCR) | payer MEDICARE, BC, OTHER | END 2018-07-31 | disposition home or self-care (01) | LOC: WSPT | DX: M48.061 Spinal stenosis, lumbar region without neurogenic claudication (principal); M41.9 Scoliosis, unspecified; M53.3 Sacrococcygeal disorders, not elsewhere classified; M47.817 Spondylosis without myelopathy or radiculopathy, lumbosacral region; G89.29 Other chronic pain; Z79.899 Other long term (current) drug therapy; Z82.49 Family history of ischemic heart disease and other diseases of the circulatory system; Z80.7 Family history of other malignant neoplasms of lymphoid, hematopoietic and related tissues; Z87.891 Personal history of nicotine dependence | CPT/HCPCS: G8978-GP; G8979-GP; G8980-GP; G8984-GP ==

== ENCOUNTER → 2018-07-28 | Outpatient (CLI) | payer MEDICARE, BC, OTHER | LOC: MHCPAIN 07:55 | DX: M47.817 Spondylosis without myelopathy or radiculopathy, lumbosacral region (principal); M54.16 Radiculopathy, lumbar region | CPT/HCPCS: J1040; Q9967 ==

== ENCOUNTER → 2018-08-24 | Outpatient (CLI) | payer MEDICARE, BC, OTHER | LOC: MHCPAIN 10:02 | DX: G89.29 Other chronic pain (principal); M47.817 Spondylosis without myelopathy or radiculopathy, lumbosacral region; M54.16 Radiculopathy, lumbar region; M53.3 Sacrococcygeal disorders, not elsewhere classified; M79.2 Neuralgia and neuritis, unspecified; M41.9 Scoliosis, unspecified | CPT/HCPCS: G0463 ==

== ENCOUNTER → 2018-09-26 | Outpatient (CLI) | payer MEDICARE, BC, OTHER | LOC: MHCPAIN 08:40 | DX: M47.817 Spondylosis without myelopathy or radiculopathy, lumbosacral region (principal); M54.16 Radiculopathy, lumbar region | CPT/HCPCS: J3010 ==

== ENCOUNTER → 2018-10-31 | Outpatient (CLI) | payer MEDICARE, BC, OTHER | LOC: MC.RAD 12:55 | DX: C50.411 Malignant neoplasm of upper-outer quadrant of right female breast (principal); R92.0 Mammographic microcalcification found on diagnostic imaging of breast; Z98.890 Other specified postprocedural states; Z85.3 Personal history of malignant neoplasm of breast | CPT/HCPCS: G0279 ==

== ENCOUNTER → 2018-11-08 | Outpatient (CLI) | payer MEDICARE, BC, OTHER ==
[2018-11-08 12:43] LABS: COLLECTION METHOD CLEAN CATCH
[2018-11-08 12:46] LABS: BASO # 0.1 (0.0-0.2); BASO % 0.6 % (0.0-2.0); EOS # 0.7 (0.0-0.7); EOS % 5.3 % (0-4.0); GRAN # 9.2 (1.4-6.5); GRAN % 70.9 % (42.2-75.2); HEMATOCRIT 40.2 % (37.0-47.0); HEMOGLOBIN 13.2 g/dl (12.5-16.0); LYMPH # 2.3 (1.2-3.4); LYMPH % 17.8 % (20.0-51.0); MEAN CELL VOLUME 94 fl (80.0-100.0); MEAN CORPUSCULAR HEMOGLOBIN 31 pg (27.0-31.0); MEAN CORPUSCULAR HGB CONC 33 g/dl (33.0-37.0); MEAN PLATELET VOLUME 10.2 fl (7.4-10.4); MONO # 0.6 (0.1-0.6); MONO % 4.9 % (1.7-9.3); PLATELET COUNT 205 K/mm3 (130-400); REDCELL DISTRIBUTION WIDTH-CV 13.5 % (11.5-14.5)
[2018-11-08 12:51] LABS: MUCOUS Present /lpf; PH 5 (5-8); SQUAMOUS EPITHELIAL 0-2 /hpf; URINE APPEARANCE Hazy; URINE BACTERIA None Seen /hpf; URINE BILIRUBIN Negative (NEGATIVE); URINE BLOOD 1+ (NEGATIVE); URINE GLUCOSE Negative (NEGATIVE); URINE KETONE Negative (NEGATIVE); URINE LEUKOCYTE ESTERASE Negative (NEGATIVE); URINE NITRATE Negative (NEGATIVE); URINE PROTEIN(semi-quant) Negative (NEGATIVE); URINE RBC 0-2 /hpf; URINE UROBILINOGEN Negative (NEGATIVE)
[2018-11-08 12:52] LABS: URINE COLOR Yellow
[2018-11-08 13:02] LABS: ALBUMIN 4.1 gm/dL (3.5-5.0); BILIRUBIN,TOTAL 0.3 mg/dL (0.0-1.0); CALCIUM 9.7 mg/dL (8.4-10.2); CHOLESTEROL RISK RATIO 4.3; CREATININE, serum 1.53 mg/dL (0.52-1.25); POTASSIUM 4.5 mmol/L (3.4-5.0); TOTAL PROTEIN 7.3 gm/dL (6.4-8.2)
[2018-11-08 13:08] LABS: ERYTHROCYTE SEDIMENTATION RATE 1 mm/hr (0-30)
[2018-11-08 13:32] LABS: THYROID STIMULATING HORMONE 1.47 uIU/mL (0.465-4.680)
== END ==
LOC: COL.LAB 11:50
PROVIDERS: Internal Medicine
DX: E11.42 Type 2 diabetes mellitus with diabetic polyneuropathy (principal); M81.0 Age-related osteoporosis without current pathological fracture; E53.8 Deficiency of other specified B group vitamins

== ENCOUNTER → 2018-11-14 | Outpatient (CLI) | payer MEDICARE, BC, OTHER | LOC: MHCPAIN 11:16 | DX: G89.29 Other chronic pain (principal); M47.817 Spondylosis without myelopathy or radiculopathy, lumbosacral region; M54.16 Radiculopathy, lumbar region; M53.3 Sacrococcygeal disorders, not elsewhere classified ==

== ENCOUNTER → 2018-11-28 | Outpatient (CLI) | payer MEDICARE, BC, OTHER | LOC: MHCPAIN 13:50 | DX: M47.817 Spondylosis without myelopathy or radiculopathy, lumbosacral region (principal); M54.16 Radiculopathy, lumbar region ==

== ENCOUNTER → 2018-12-09 | Outpatient (CLI) | payer MEDICARE, BC, OTHER | LOC: ZCOL.LAB 12:25 | DX: E13.51 Other specified diabetes mellitus with diabetic peripheral angiopathy without gangrene (principal); L97.421 Non-pressure chronic ulcer of left heel and midfoot limited to breakdown of skin ==

== ENCOUNTER → 2019-01-09 | Outpatient (CLI) | payer MEDICARE, BC, OTHER | LOC: MHCPAIN 11:52 | DX: G89.29 Other chronic pain (principal); M47.817 Spondylosis without myelopathy or radiculopathy, lumbosacral region; M53.3 Sacrococcygeal disorders, not elsewhere classified | CPT/HCPCS: G0463; J3010 ==

== ENCOUNTER → 2019-02-23 | Outpatient (CLI) | payer MEDICARE, BC, OTHER ==
[2019-02-23 12:13] LABS: BASO # 0.1 (0.0-0.2); BASO % 0.8 % (0.0-2.0); EOS # 0.6 (0.0-0.7); EOS % 7.1 % (0-4.0); GRAN # 5.3 (1.4-6.5); GRAN % 63.4 % (42.2-75.2); HEMOGLOBIN 12.9 g/dl (12.5-16.0); LYMPH # 1.8 (1.2-3.4); LYMPH % 21.4 % (20.0-51.0); MEAN CELL VOLUME 91 fl (80.0-100.0); MEAN CORPUSCULAR HEMOGLOBIN 30 pg (27.0-31.0); MEAN CORPUSCULAR HGB CONC 33 g/dl (33.0-37.0); MEAN PLATELET VOLUME 9.9 fl (7.4-10.4); MONO # 0.6 (0.1-0.6); MONO % 7.1 % (1.7-9.3); PLATELET COUNT 187 K/mm3 (130-400); RED BLOOD COUNT 4.27 M/mm3 (4.10-5.30); REDCELL DISTRIBUTION WIDTH-CV 13.2 % (11.5-14.5)
[2019-02-23 12:19] LABS: BILIRUBIN,TOTAL 0.5 mg/dL (0.0-1.0); CALCIUM 9.9 mg/dL (8.4-10.2); CREATININE, serum 1.48 (0.52-1.25); POTASSIUM 4.5 mmol/L (3.4-5.0); TOTAL PROTEIN 7.4 gm/dL (6.4-8.2)
== END ==
LOC: COL.LAB 11:32
PROVIDERS: Internal Medicine
DX: G62.89 Other specified polyneuropathies (principal)

== ENCOUNTER → 2019-03-08 | Outpatient (CLI) | payer MEDICARE, BC, OTHER | LOC: MHCPAIN 11:10 | DX: G89.29 Other chronic pain (principal); M47.817 Spondylosis without myelopathy or radiculopathy, lumbosacral region; M53.3 Sacrococcygeal disorders, not elsewhere classified; M41.9 Scoliosis, unspecified | CPT/HCPCS: G0463 ==

== ENCOUNTER → 2019-05-26 | Outpatient (CLI) | payer MEDICARE, BC, OTHER ==
[~2019-05-26] MED LIST changes: +ANTIVERT 25MG25 MG PO; +MACROBID 1100 MG/CAP PO; +PROTONIX20 MG PO
== END ==
LOC: MC.RAD 09:28
DX: K21.9 Gastro-esophageal reflux disease without esophagitis (principal); K44.9 Diaphragmatic hernia without obstruction or gangrene; K22.8 Other specified diseases of esophagus

== ENCOUNTER 2019-06-14 16:15 | Emergency (ER) | payer MEDICARE, BC, OTHER ==
[~2019-06-14] VITALS: Ht 162.6 cm; Wt 79.5 kg
[~2019-06-14 16:15] MED LIST changes: -ANTIVERT 25MG25 MG PO; -MACROBID 1100 MG/CAP PO; -PROTONIX20 MG PO
[2019-06-14 17:14] LABS: ALANINE AMINOTRANSFERASE 14 U/L (9-52); ALBUMIN 3.7 gm/dL (3.5-5.0); ALKALINE PHOSPHATASE 80 U/L (50-136); ANION GAP 9 mmol/L (7-16); AST,SGOT 25 U/L (15-37); BILIRUBIN,TOTAL 0.2 mg/dL (0.0-1.0); BLOOD UREA NITROGEN 23 mg/dL (7-17); CALCIUM 9.3 mg/dL (8.4-10.2); CARBON DIOXIDE 23 mmol/L (22-30); CHLORIDE 105 mmol/L (98-107); CREATININE, serum 1.36 (0.52-1.25); GLUCOSE 118 mg/dL (74-106); SODIUM 137 mmol/L (137-145); TOTAL PROTEIN 6.7 gm/dL (6.4-8.2)
[2019-06-14 17:17] LABS: BASO # 0.1 (0.0-0.2); BASO % 0.5 % (0.0-2.0); EOS # 0.4 (0.0-0.7); EOS % 4.5 % (0-4.0); GRAN # 6.1 (1.4-6.5); GRAN % 61.2 % (42.2-75.2); HEMOGLOBIN 11.8 g/dl (12.5-16.0); LYMPH # 2.6 (1.2-3.4); LYMPH % 25.8 % (20.0-51.0); MEAN CELL VOLUME 88 fl (80.0-100.0); MEAN CORPUSCULAR HEMOGLOBIN 29 pg (27.0-31.0); MEAN CORPUSCULAR HGB CONC 33 g/dl (33.0-37.0); MEAN PLATELET VOLUME 10.3 fl (7.4-10.4); MONO # 0.7 (0.1-0.6); MONO % 7.5 % (1.7-9.3); PLATELET COUNT 169 K/mm3 (130-400); RED BLOOD COUNT 4.11 M/mm3 (4.10-5.30)
[2019-06-14 17:20] LABS: HEMATOCRIT 36.2 % (37.0-47.0)
[2019-06-14 17:41] LABS: TROPONIN-I < 0.012 ng/mL (0.000-0.035)
[2019-06-14] MEDS ORDERED: PROTONIX20 MG PO (17:57)
[2019-06-14 18:31] LABS: COLLECTION METHOD CLEAN CATCH
[2019-06-14 18:34] VITALS: TEMP 97.8
[2019-06-14 18:41] LABS: MUCOUS Present /lpf; PH 6 (5-8); SQUAMOUS EPITHELIAL 0-2 /hpf; URINE APPEARANCE Hazy; URINE BACTERIA Rare /hpf; URINE BILIRUBIN Negative (NEGATIVE); URINE BLOOD Negative (NEGATIVE); URINE COLOR Yellow; URINE GLUCOSE Negative (NEGATIVE); URINE KETONE Negative (NEGATIVE); URINE LEUKOCYTE ESTERASE Trace (NEGATIVE); URINE NITRATE Negative (NEGATIVE); URINE PROTEIN(semi-quant) Negative (NEGATIVE); URINE RBC 0-2 /hpf; URINE UROBILINOGEN Negative (NEGATIVE)
[2019-06-14 19:07] VITALS: BP 158/80
[2019-06-14] MEDS ORDERED: MACROBID 1100 MG/CAP PO (19:16)
[2019-06-14] MEDS ORDERED: ANTIVERT 25MG25 MG PO (19:33)
[2019-06-14 20:08] VITALS: PULSE 74
== END 2019-06-14 20:10 | disposition home or self-care (01) ==
LOC: COL.ER 16:15
PROVIDERS: Emergency Medicine
DX: R42 Dizziness and giddiness (principal); Z79.51 Long term (current) use of inhaled steroids
CPT/HCPCS: J7030

== ENCOUNTER → 2019-07-11 | Outpatient (CLI) | payer MEDICARE, BC, OTHER ==
[~2019-07-11] MED LIST changes: +ANTIVERT 25MG25 MG PO; +MACROBID 1100 MG/CAP PO; +PROTONIX20 MG PO
== END ==
LOC: MHCPAIN 12:28
DX: G89.29 Other chronic pain (principal); M47.817 Spondylosis without myelopathy or radiculopathy, lumbosacral region; M53.3 Sacrococcygeal disorders, not elsewhere classified; M41.9 Scoliosis, unspecified; M79.2 Neuralgia and neuritis, unspecified
CPT/HCPCS: G0463

== ENCOUNTER → 2019-08-15 | Outpatient (CLI) | payer MEDICARE, BC, OTHER | LOC: MHCPAIN 09:01 | DX: G89.29 Other chronic pain (principal); M47.817 Spondylosis without myelopathy or radiculopathy, lumbosacral region; M53.3 Sacrococcygeal disorders, not elsewhere classified; M79.2 Neuralgia and neuritis, unspecified; M41.9 Scoliosis, unspecified | CPT/HCPCS: G0463 ==

== ENCOUNTER → 2019-09-21 | Outpatient (CLI) | payer MEDICARE, BC, OTHER | LOC: MHCPAIN 10:57 | DX: M54.5 Low back pain (principal) ==

== ENCOUNTER → 2019-10-12 | Outpatient (CLI) | payer MEDICARE, BC, OTHER | LOC: MHCPAIN 07:43 | DX: M54.5 Low back pain (principal) | CPT/HCPCS: J3010 ==

== ENCOUNTER → 2019-10-19 | Outpatient (CLI) | payer MEDICARE, BC, OTHER | LOC: MHCPAIN 10:23 | DX: M54.5 Low back pain (principal) | CPT/HCPCS: J3010 ==

== ENCOUNTER → 2019-11-09 | Outpatient (CLI) | payer MEDICARE, BC, OTHER | LOC: MC.RAD 10:25 | DX: Z12.31 Encounter for screening mammogram for malignant neoplasm of breast (principal); Z90.11 Acquired absence of right breast and nipple ==

== ENCOUNTER → 2019-11-28 | Outpatient (CLI) | payer MEDICARE, BC, OTHER | LOC: MHCPAIN 12:30 | DX: M47.27 Other spondylosis with radiculopathy, lumbosacral region (principal); M41.26 Other idiopathic scoliosis, lumbar region; G89.29 Other chronic pain; E11.9 Type 2 diabetes mellitus without complications; Z79.4 Long term (current) use of insulin | CPT/HCPCS: G0463 ==

== ENCOUNTER → 2019-11-28 | Outpatient (CLI) | payer MEDICARE, BC, OTHER | LOC: COL.RAD 08:33 | DX: M51.36 Other intervertebral disc degeneration, lumbar region (principal); M48.061 Spinal stenosis, lumbar region without neurogenic claudication; M41.86 Other forms of scoliosis, lumbar region ==

== ENCOUNTER → 2019-12-07 | Outpatient (CLI) | payer MEDICARE, BC, OTHER | LOC: MHCPAIN 13:01 | DX: M41.26 Other idiopathic scoliosis, lumbar region (principal); M54.5 Low back pain | CPT/HCPCS: J1100; Q9967 ==

== ENCOUNTER → 2020-03-12 | Outpatient (CLI) | payer MEDICARE, BC, OTHER | LOC: MHCPAIN 10:36 | DX: M47.817 Spondylosis without myelopathy or radiculopathy, lumbosacral region (principal); M54.5 Low back pain; M53.3 Sacrococcygeal disorders, not elsewhere classified; G89.29 Other chronic pain; M96.1 Postlaminectomy syndrome, not elsewhere classified; M47.814 Spondylosis without myelopathy or radiculopathy, thoracic region; M54.16 Radiculopathy, lumbar region | CPT/HCPCS: G0463 ==

== ENCOUNTER → 2020-03-21 | Outpatient (CLI) | payer MEDICARE, BC, OTHER | LOC: MHCPAIN 10:38 | DX: M47.818 Spondylosis without myelopathy or radiculopathy, sacral and sacrococcygeal region (principal); M53.3 Sacrococcygeal disorders, not elsewhere classified | CPT/HCPCS: G0260; J1040; Q9967 ==

== ENCOUNTER → 2020-06-05 | Outpatient (CLI) | payer MEDICARE, BC, OTHER | LOC: ZCOL.LAB 16:19 | DX: E11.621 Type 2 diabetes mellitus with foot ulcer (principal); L97.409 Non-pressure chronic ulcer of unspecified heel and midfoot with unspecified severity ==

== ENCOUNTER → 2020-06-20 | Outpatient (CLI) | payer MEDICARE, BC, OTHER ==
[2020-06-20 13:36] LABS: BASO # 0.1 (0.0-0.2); BASO % 0.6 % (0.0-2.0); EOS # 0.4 (0.0-0.7); EOS % 5.2 % (0-4.0); GRAN # 4.8 (1.4-6.5); HEMOGLOBIN 11.9 g/dl (12.5-16.0); LYMPH % 24.9 % (20.0-51.0); MEAN CELL VOLUME 92 fl (80.0-100.0); MEAN CORPUSCULAR HEMOGLOBIN 31 pg (27.0-31.0); MEAN CORPUSCULAR HGB CONC 33 g/dl (33.0-37.0); MEAN PLATELET VOLUME 9.2 fl (7.4-10.4); MONO # 0.6 (0.1-0.6); PLATELET COUNT 205 K/mm3 (130-400); REDCELL DISTRIBUTION WIDTH-CV 13.5 % (11.5-14.5)
[2020-06-20 13:39] LABS: HEMATOCRIT 35.8 % (37.0-47.0)
[2020-06-20 13:54] LABS: ALBUMIN 4.1 gm/dL (3.5-5.0); BILIRUBIN,TOTAL 0.7 mg/dL (0.0-1.0); C-REACTIVE PROTEIN 0.7 mg/dL (0.0-0.9); CALCIUM 9.9 mg/dL (8.4-10.2); CREATININE, serum 1.44 (0.52-1.25); POTASSIUM 4.7 mmol/L (3.4-5.0); TOTAL PROTEIN 7.3 gm/dL (6.4-8.2)
[2020-06-20 14:06] LABS: ERYTHROCYTE SEDIMENTATION RATE 25 mm/hr (0-30)
== END ==
LOC: COL.RAD 12:56
PROVIDERS: Nurse Practitioner
DX: E11.621 Type 2 diabetes mellitus with foot ulcer (principal); L97.409 Non-pressure chronic ulcer of unspecified heel and midfoot with unspecified severity; T14.8XXA Other injury of unspecified body region, initial encounter; L98.8 Other specified disorders of the skin and subcutaneous tissue
CPT/HCPCS: A9585

== ENCOUNTER → 2020-07-17 | Outpatient (CLI) | payer MEDICARE, BC, OTHER | LOC: MHCPAIN 11:06 | DX: M47.817 Spondylosis without myelopathy or radiculopathy, lumbosacral region (principal); M53.3 Sacrococcygeal disorders, not elsewhere classified; G89.29 Other chronic pain; M54.5 Low back pain | CPT/HCPCS: G0463 ==

== ENCOUNTER → 2020-08-19 | Outpatient (CLI) | payer MEDICARE, BC, OTHER | LOC: MHCPAIN 11:31 | DX: M41.86 Other forms of scoliosis, lumbar region (principal); M54.5 Low back pain; M53.3 Sacrococcygeal disorders, not elsewhere classified | CPT/HCPCS: G0463 ==

== ENCOUNTER → 2020-09-02 | Outpatient (CLI) | payer MEDICARE, BC, OTHER | LOC: MHCPAIN 12:39 | DX: M47.817 Spondylosis without myelopathy or radiculopathy, lumbosacral region (principal); M54.5 Low back pain | CPT/HCPCS: G0463; J2250; J3010 ==

== ENCOUNTER → 2020-09-05 | Outpatient (CLI) | payer MEDICARE, BC, OTHER | LOC: MHCPAIN 13:07 | DX: M47.817 Spondylosis without myelopathy or radiculopathy, lumbosacral region (principal); M54.5 Low back pain | CPT/HCPCS: J3010 ==

== ENCOUNTER → 2020-09-06 | Outpatient (CLI) | payer MEDICARE, BC, OTHER | LOC: ZCOL.LAB 15:38 | DX: E13.621 Other specified diabetes mellitus with foot ulcer (principal); L97.509 Non-pressure chronic ulcer of other part of unspecified foot with unspecified severity ==

== ENCOUNTER → 2020-11-04 | Outpatient (CLI) | payer MEDICARE, BC, OTHER | LOC: MHCPAIN 11:04 | DX: M47.817 Spondylosis without myelopathy or radiculopathy, lumbosacral region (principal); M54.5 Low back pain; M53.3 Sacrococcygeal disorders, not elsewhere classified; G89.29 Other chronic pain; M41.86 Other forms of scoliosis, lumbar region | CPT/HCPCS: G0463 ==

== ENCOUNTER → 2020-11-14 | Outpatient (CLI) | payer MEDICARE, BC, OTHER ==
[~2020-11-14] MED LIST changes: +FLAGYL500 MG PO; +ZOFRAN 4MG T4 MG/TAB PO
== END ==
LOC: ZCOL.LAB 09:28
DX: E13.621 Other specified diabetes mellitus with foot ulcer (principal)

== ENCOUNTER → 2020-11-27 | Outpatient (CLI) | payer MEDICARE, BC, OTHER | LOC: MC.RAD | DX: Z12.31 Encounter for screening mammogram for malignant neoplasm of breast (principal); Z90.11 Acquired absence of right breast and nipple ==

== ENCOUNTER 2021-02-20 11:00 | Outpatient (RCR) | payer MEDICARE, BC, OTHER ==
[~2021-02-20 11:00] MED LIST changes: -FLAGYL500 MG PO; -ZOFRAN 4MG T4 MG/TAB PO
== END 2021-03-07 15:27 | disposition home or self-care (01) ==
LOC: WSPT 11:00
DX: E11.621 Type 2 diabetes mellitus with foot ulcer (principal); M54.16 Radiculopathy, lumbar region; F32.9 Major depressive disorder, single episode, unspecified; Z79.899 Other long term (current) drug therapy

== ENCOUNTER → 2021-02-27 | Outpatient (CLI) | payer MEDICARE, BC ==
[~2021-02-27] MED LIST changes: +FLAGYL500 MG PO; +ZOFRAN 4MG T4 MG/TAB PO
== END ==
LOC: COL.RAD 12:14
DX: M47.812 Spondylosis without myelopathy or radiculopathy, cervical region (principal); M48.02 Spinal stenosis, cervical region

== ENCOUNTER → 2021-03-12 | Outpatient (CLI) | payer MEDICARE, BC | LOC: ZCOL.LAB 16:25 | DX: B99.9 Unspecified infectious disease (principal) ==

== ENCOUNTER → 2021-06-04 | Outpatient (CLI) | payer MEDICARE, BC | LOC: ZCOL.LAB 16:08 | DX: B99.9 Unspecified infectious disease (principal) ==

== ENCOUNTER → 2021-07-09 | Outpatient (CLI) | payer MEDICARE, BC | LOC: MHCPAIN 14:02 | DX: M47.816 Spondylosis without myelopathy or radiculopathy, lumbar region (principal); M79.18 Myalgia, other site; M54.50 Low back pain, unspecified; M53.3 Sacrococcygeal disorders, not elsewhere classified | CPT/HCPCS: G0463 ==

== ENCOUNTER → 2021-07-30 | Outpatient (CLI) | payer BC | LOC: ZCOL.LAB 17:18 | DX: E13.621 Other specified diabetes mellitus with foot ulcer (principal) ==

== ENCOUNTER 2021-08-04 12:24 | Emergency (ER) | payer MEDICARE, BC ==
[~2021-08-04] VITALS: Ht 162.6 cm; Wt 58.2 kg
[~2021-08-04 12:24] MED LIST changes: -FLAGYL500 MG PO; -ZOFRAN 4MG T4 MG/TAB PO
[2021-08-04 12:50] VITALS: TEMP 98.1
[2021-08-04 14:04] LABS: BASO # 0.1 K/mm3 (0.0-0.2); BASO % 0.5 % (0.0-2.0); EOS # 0.1 K/mm3 (0.0-0.7); GRAN % 82.5 % (42.2-75.2); HEMATOCRIT 38.1 % (37.0-47.0); HEMOGLOBIN 12.8 g/dl (12.5-16.0); LYMPH # 1.1 K/mm3 (1.2-3.4); LYMPH % 11.3 % (20.0-51.0); MEAN CELL VOLUME 88 fl (80.0-100.0); MEAN CORPUSCULAR HEMOGLOBIN 29 pg (27.0-31.0); MEAN CORPUSCULAR HGB CONC 34 g/dl (33.0-37.0); MEAN PLATELET VOLUME 10.1 fl (7.4-10.4); MONO # 0.4 K/mm3 (0.1-0.6); MONO % 4.3 % (1.7-9.3); PLATELET COUNT 223 K/mm3 (130-400); RED BLOOD COUNT 4.35 M/mm3 (4.10-5.30); REDCELL DISTRIBUTION WIDTH-CV 13.8 % (11.5-14.5)
[2021-08-04 14:19] LABS: ALBUMIN 3.8 gm/dL (3.4-4.8); BILIRUBIN,TOTAL 0.6 mg/dL (0.2-1.2); C-REACTIVE PROTEIN 0.85 mg/dL (0.00-0.50); CALCIUM 9.7 mg/dL (8.4-10.2); CREATININE, serum 1.28 mg/dL (0.57-1.11); POTASSIUM 3.6 mmol/L (3.5-4.5); TOTAL PROTEIN 7.1 gm/dL (6.2-8.1)
[2021-08-04] MEDS ORDERED: FLAGYL500 MG PO (18:02)
[2021-08-04] MEDS ORDERED: ZOFRAN 4MG T4 MG/TAB PO (18:02)
[2021-08-04 18:42] VITALS: BP 134/71; PULSE 87
== END 2021-08-04 18:42 | disposition other institution (70) ==
LOC: COL.ER 12:24
PROVIDERS: Nurse Practitioner Primary Care
DX: K57.92 Diverticulitis of intestine, part unspecified, without perforation or abscess without bleeding (principal); F03.90 Unspecified dementia, unspecified severity, without behavioral disturbance, psychotic disturbance, mood disturbance, and anxiety; K21.9 Gastro-esophageal reflux disease without esophagitis; E07.9 Disorder of thyroid, unspecified; Z90.49 Acquired absence of other specified parts of digestive tract; Z87.891 Personal history of nicotine dependence; Z79.890 Hormone replacement therapy; Z79.899 Other long term (current) drug therapy
CPT/HCPCS: J7030

== ENCOUNTER → 2021-10-07 | Outpatient (CLI) | payer MEDICARE ==
[~2021-10-07] MED LIST changes: +FLAGYL500 MG PO; +ZOFRAN 4MG T4 MG/TAB PO
== END ==
LOC: COL.RAD 11:58
DX: L89.629 Pressure ulcer of left heel, unspecified stage (principal)
CPT/HCPCS: A9585

== ENCOUNTER → 2021-10-21 | Outpatient (CLI) | payer MEDICARE | LOC: MHCPAIN 10:34 | DX: M79.18 Myalgia, other site (principal); M53.3 Sacrococcygeal disorders, not elsewhere classified; M54.50 Low back pain, unspecified; M41.86 Other forms of scoliosis, lumbar region | CPT/HCPCS: G0463 ==

== ENCOUNTER → 2021-10-27 | Outpatient (CLI) | payer MEDICARE | LOC: MHCPAIN | DX: M47.816 Spondylosis without myelopathy or radiculopathy, lumbar region (principal); M41.26 Other idiopathic scoliosis, lumbar region; M79.18 Myalgia, other site; M54.16 Radiculopathy, lumbar region; M53.3 Sacrococcygeal disorders, not elsewhere classified | CPT/HCPCS: J1040; J1100; Q9967 ==

== ENCOUNTER → 2021-11-26 | Outpatient (CLI) | payer MEDICARE | LOC: ZCOL.LAB 16:32 | DX: L89.629 Pressure ulcer of left heel, unspecified stage (principal); L84 Corns and callosities ==

== ENCOUNTER 2022-01-02 19:39 | Emergency (ER) | payer MEDICARE ==
[~2022-01-02] VITALS: Ht 165.1 cm; Wt 72.7 kg
[2022-01-02 19:59] VITALS: TEMP 97.8
[2022-01-02] MEDS ORDERED: AMOXICILLIN 8751 TAB PO (21:04)
[2022-01-02 21:24] VITALS: BP 174/69; PULSE 85
== END 2022-01-02 21:26 | disposition home or self-care (01) ==
LOC: COL.ER 19:39
DX: S61.451A Open bite of right hand, initial encounter (principal); Z87.891 Personal history of nicotine dependence; Z23 Encounter for immunization; Z88.6 Allergy status to analgesic agent; W55.01XA Bitten by cat, initial encounter

== ENCOUNTER 2022-03-02 11:56 | Emergency (ER) | payer MEDICARE ==
[~2022-03-02] VITALS: Ht 165.1 cm; Wt 72.7 kg
[~2022-03-02 11:56] MED LIST changes: +AMOXICILLIN 8751 TAB PO
[2022-03-02 12:18] VITALS: TEMP 97.6
[2022-03-02 14:17] VITALS: BP 146/56; PULSE 83
== END 2022-03-02 14:20 | disposition home or self-care (01) ==
LOC: COL.ER 11:56
DX: S40.011A Contusion of right shoulder, initial encounter (principal); S70.01XA Contusion of right hip, initial encounter; Z87.891 Personal history of nicotine dependence; Z28.310 Unvaccinated for COVID-19; W06.XXXA Fall from bed, initial encounter
CPT/HCPCS: J1885

== ENCOUNTER 2022-05-18 11:35 | Emergency (ER) | payer MEDICARE ==
[~2022-05-18] VITALS: Ht 165.1 cm; Wt 63.6 kg
[2022-05-18 12:43] VITALS: TEMP 97.9
[2022-05-18 13:38] LABS: BASO # 0.1 K/mm3 (0.0-0.2); BASO % 0.4 % (0.0-2.0); EOS # 0.4 K/mm3 (0.0-0.7); EOS % 3.3 % (0.0-4.0); GRAN # 8.5 K/mm3 (1.4-6.5); GRAN % 76.1 % (42.2-75.2); HEMATOCRIT 36.5 % (37.0-47.0); HEMOGLOBIN 12.3 g/dl (12.5-16.0); LYMPH # 1.4 K/mm3 (1.2-3.4); LYMPH % 12.4 % (20.0-51.0); MEAN CELL VOLUME 87 fl (80.0-100.0); MEAN CORPUSCULAR HEMOGLOBIN 29 pg (27-31); MEAN CORPUSCULAR HGB CONC 34 g/dl (33.0-37.0); MEAN PLATELET VOLUME 9.7 fl (7.4-10.4); MONO # 0.8 K/mm3 (0.1-0.6); MONO % 7.1 % (1.7-9.3); PLATELET COUNT 201 K/mm3 (130-400); RED BLOOD COUNT 4.19 M/mm3 (4.10-5.30); REDCELL DISTRIBUTION WIDTH-CV 13.4 % (11.5-14.5)
[2022-05-18 13:54] LABS: ALBUMIN 3.5 gm/dL (3.4-4.8); BILIRUBIN,TOTAL 0.5 mg/dL (0.2-1.2); CALCIUM 10.5 mg/dL (8.4-10.2); CREATININE, serum 1.58 mg/dL (0.57-1.11); POTASSIUM 3.4 mmol/L (3.5-4.5)
[2022-05-18 14:00] LABS: TROPONIN-I 0.02 ng/mL (0.00-0.033)
[2022-05-18 15:16] VITALS: BP 157/69; PULSE 67
== END 2022-05-18 15:16 | disposition home or self-care (01) ==
LOC: COL.ER 11:35
PROVIDERS: Personal Emergency Response Attendant
DX: E11.22 Type 2 diabetes mellitus with diabetic chronic kidney disease (principal); N18.9 Chronic kidney disease, unspecified; R55 Syncope and collapse; Z87.891 Personal history of nicotine dependence
CPT/HCPCS: J7030